=== PATIENT | female | born 1965 | race African-American/Black ===

== ENCOUNTER 2017-03-06 05:50 | Emergency (ER) | payer OTHER ==
[~2017-03-06] VITALS: Ht 167.6 cm; Wt 99.0 kg
[~2017-03-06 05:50] MED LIST: 1-ME1LIQ PO; OMPR20CCR PO
[2017-03-06 05:52] VITALS: BP 188/124; PULSE 96; RESP 16; TEMP 98.7; O2SAT 97
[2017-03-06] MEDS ORDERED: ATOR10TA15 PO (06:04)
[2017-03-06] MEDS ORDERED: AMLO2.5T PO (06:04)
[2017-03-06] MEDS ORDERED: OMEP10CA PO (06:04)
[2017-03-06 06:06] VITALS: BP 140/89; PULSE 88; RESP 16; O2SAT 99
[2017-03-06] MEDS ORDERED: ACETAMINOPHEN/HYDROcodone 325 MG/5 MG TAB PO ONE (06:15)
[2017-03-06] MEDS ORDERED: KETOROLAC TROMETHAMINE 60 MG/2 ML (IM) VIAL IM ONE (06:15)
--- NOTE | 2017-03-06 06:23 | PD ---
HPI Chief Complaint: Pain: Acute or Chronic Time Seen by Provider: 06:03 Travel History International Travel<30 days: No Contact w/Intl Traveler<30days: No Traveled to known affect area: No History of Present Illness HPI So 51-year-old woman who presents to the emergency department complaining of left arm pain. Ongoing for the past week or so. She had intermittent trouble with it for years but states this is worse she's had it before. She describes some stiffness, as well as some occasional numbness of the left hand. No other complaints. States she took her last Lortab last night. She normally takes his her back and neck problems. History Past Medical History Narrative Medical Hypertension Hyperlipidemia Hypothyroidism GERD Menopausal: Yes : 6 Para: 4 Dilation and Curettage (D&C): Yes Social History Alcohol Use: Yes (OCC) Tobacco Use: Yes (/2 ppd) Allergies-Medications (Allergen,Severity, Reaction): Coded Allergies: Aspirin (Verified Allergy, Mild, Nausea/Vomiting, 03/06/17) Morphine (Verified Adverse Reaction, Mild, TINGLING IN EXTREMITIES, 03/06/17 ) Adhesives (Verified Adverse Reaction, Unknown, 03/06/17) pulls skin off Reported Meds & Prescriptions Reported Meds & Active Scripts Active Reported Omeprazole 10 Mg Cap 10 Mg PO DAILY Atorvastatin (Atorvastatin Calcium) 10 Mg Tab 10 Mg PO HS Amlodipine (Amlodipine Besylate) 2.5 Mg Tab 2.5 Mg PO DAILY Review of Systems Except as stated in HPI: all other systems reviewed are Neg Physical Exam Narrative GENERAL: 50 year-old woman, no acute distress. SKIN: Warm and dry. CARDIOVASCULAR: Warm and well perfused. RESPIRATORY: Normal rate and effort. MUSCULOSKELETAL: Normal appearance of the left upper extremity. She guards against any movement of the shoulder resists any attempts at examination. She is generalized tenderness of the shoulder. There is no warmth or erythema that I can appreciate. Elbow is unremarkable. Wrist and hand is unremarkable. Good pulses in the distal extremity with good perfusion. NEUROLOGICAL: Awake and alert. No gross deficits. Data Data Last Documented VS Vital Signs Date Time Temp Pulse Resp B/P Pulse Ox O2 Delivery O2 Flow Rate FiO2 03/06/17 06:09 88 16 03/06/17 06:06 140/89 99 Room Air 03/06/17 05:52 98.7 Orders Ketorolac Inj (Toradol Inj) (03/06/17 06:15) Acetamin-Hydrocod 325-5 Mg ([place] 5-325 (03/06/17 06:15) [facility] Medical Decision Making Medical Screen Exam Complete: Yes Emergency Medical Condition: Yes Differential Diagnosis Radiculopathy, arthritis, strain or sprain, vascular disease, DVT, other Narrative Course Medical decision making A thorough left arm pain. She had intermittent symptoms in the past, but not this severe. She is pretty significant discomfort moving the shoulder. Don't see any warmth or inflammation to suggest an infected joint. Is no edema to suggest DVT. Probable radiculopathy. She was taking opiates for this at home. Recommend supportive treatment now, outpatient follow-up. She had an x-ray done in September of last year that was unremarkable. Diagnosis Primary Impression: Left arm pain Additional Instructions: Continue current medications. Follow-up with your primary doctor Wednesday for further evaluation. Return to the emergency department for any new or worsening symptoms. Med/Other Pt SpecificInfo: No Change to Meds Disposition: 01 DISCHARGE HOME Condition: Stable Dima Rain MD March 06, 2017 06:23
== END 2017-03-06 06:59 | disposition home or self-care (01) ==
LOC: NEPC 05:50
DX: M79.602 Pain in left arm (principal); R20.0 Anesthesia of skin; I10 Essential (primary) hypertension; F17.210 Nicotine dependence, cigarettes, uncomplicated
CPT/HCPCS: 96372; 99283; J1885

== ENCOUNTER 2017-05-10 23:12 | Observation (INO) | payer OTHER ==
[~2017-05-10] VITALS: Ht 170.2 cm; Wt 95.0 kg
[~2017-05-10 23:12] MED LIST changes: -1-ME1LIQ PO; +AMLO2.5T PO; +ATOR10TA15 PO; +OMEP10CA PO; -OMPR20CCR PO
[2017-05-10 23:18] VITALS: BP 173/98; PULSE 78; RESP 16; TEMP 98.6; O2SAT 100
--- NOTE | 2017-05-10 23:51 | PD ---
HPI Chief Complaint: chest pain, abdominal pain Time Seen by Provider: 23:51 Travel History International Travel<30 days: No Contact w/Intl Traveler<30days: No Traveled to known affect area: No History of Present Illness HPI 51-year-old female came to the emergency room with history of epigastric pain going up to her chest. Patient is very hard of hearing and difficult to get much history. But she did point to her epigastric area and said that the pain is radiating up to her chest. I was unable to get the quality of the pain. She did appear to be uncomfortable. Patient has been in the emergency room multiple times with abdominal pain and chest pain related complains. Vital signs were relatively stable. She says she has been nauseous and vomited. [facility], [facility] Past Medical History Narrative Medical List of her past medical, surgical, social and family history was reviewed from the nursing note. Arthritis: No Heart Rhythm Problems: No Cancer: No Cardiac Catheterization: No Cardiovascular Problems: Yes High Cholesterol: Yes Chest Pain: No Congestive Heart Failure: No Cerebrovascular Accident: No Diabetes: No Diminished Hearing: Yes (YES PT IS DEAF, ABLE TO READ LIPS) Endocrine: No GERD: Yes Genitourinary: No Headaches: Yes Hypertension: Yes Immune Disorder: No Musculoskeletal: Yes (CHRONIC BACK NECK AND SHOULDER PAIN) Neurologic: Yes Psychiatric: No Reproductive: No Respiratory: No Immunizations Current: Yes Migraines: Yes Seizures: Yes Thyroid Disease: No Menopausal: Yes : 6 Para: 4 Miscarriage: 1 : 1 Dilation and Curettage (D&C): Yes Tubal Ligation: Yes Past Surgical History Abdominal Surgery: Yes (APPENDECTOMY) Appendectomy: Yes Cardiac Surgery: No Coronary Artery Bypass Graft: No Ear Surgery: No Endocrine Surgery: No Eye Surgery: No Genitourinary Surgery: No Gynecologic Surgery: Yes (D&C) Hysterectomy: Yes (06/15/2011) Oral Surgery: No Thoracic Surgery: No Other Surgery: Yes Social History Alcohol Use: Yes (OCC) Tobacco Use: Yes (11/02 ppd) Substance Use: Yes (MARIJUANA DAILY) Allergies-Medications (Allergen,Severity, Reaction): Coded Allergies: Aspirin (Verified Allergy, Mild, Nausea/Vomiting, 05/10/17) Morphine (Verified Adverse Reaction, Mild, TINGLING IN EXTREMITIES, ) Adhesives (Verified Adverse Reaction, Unknown, 05/10/17) pulls skin off Comments List of her allergies reviewed from the nurse's note. Reported Meds & Prescriptions Reported Meds & Active Scripts Active Reported Omeprazole 10 Mg Cap 10 Mg PO DAILY Atorvastatin (Atorvastatin Calcium) 10 Mg Tab 10 Mg PO HS Amlodipine (Amlodipine Besylate) 2.5 Mg Tab 2.5 Mg PO DAILY Narrative Medication List of her home medications reviewed from the nursing note. Review of Systems Except as stated in HPI: all other systems reviewed are Neg Physical Exam Narrative GENERAL: Awake, alert, moderate distress SKIN: Focused skin assessment warm/dry. HEAD: Atraumatic. Normocephalic. EYES: Pupils equal and round. No scleral icterus. No injection or drainage. ENT: No nasal bleeding or discharge. Mucous membranes pink and moist. NECK: Trachea midline. No JVD. CARDIOVASCULAR: Regular rate and rhythm. No murmur appreciated. RESPIRATORY: No accessory muscle use. Clear to auscultation. Breath sounds equal bilaterally. GASTROINTESTINAL: Abdomen soft, non-tender, nondistended. Hepatic and splenic margins not palpable. MUSCULOSKELETAL: No obvious deformities. No clubbing. No cyanosis. No edema. NEUROLOGICAL: Awake and alert. No obvious cranial nerve deficits. Motor grossly within normal limits. Normal speech. PSYCHIATRIC: Appropriate mood and affect; insight and judgment normal. Data Data Last Documented VS Vital Signs Date Time Temp Pulse Resp B/P Pulse Ox O2 Delivery O2 Flow Rate FiO2 05/11/17 05:23 67 22 156/72 100 Room Air 05/11/17 00:09 98.2 Orders Electrocardiogram (05/11/17 00:10) Ckmb (Isoenzyme) Profile (05/11/17 00:10) Complete Blood Count With Diff (05/11/17 00:10) Comprehensive Metabolic Panel (05/11/17 00:10) Magnesium (Mg) (05/11/17 00:10) Prothrombin Time / Inr (Pt) (05/11/17 00:10) Troponin I (05/11/17 00:10) Lipase (05/11/17 00:10) Chest, Single Ap (05/11/17 00:10) Ecg Monitoring (05/11/17 00:10) Bilateral Bp Monitoring (05/11/17 00:10) Iv Access Insert/Monitor (05/11/17 00:10) Oximetry (05/11/17 00:10) Oxygen Administration (05/11/17 00:10) Sodium Chloride 0.9% Flush (Ns Flush) (05/11/17 00:15) Ondansetron Inj (Zofran Inj) (05/11/17 00:15) Ketorolac Inj (Toradol Inj) (05/11/17 00:15) Sodium Chlor 0.9% 1000 Ml Inj (Ns 1000 M (05/11/17 00:15) Ed Poc Ultrasound (05/11/17 ) Cta Thor Abd Aorta W Iv C W3d (05/11/17 ) CKMB (05/11/17 03:36) CKMB% (05/11/17 03:36) Acetamin-Hydrocod 325-5 Mg ([place] 5-325 (05/11/17 04:45) Iohexol 350 Inj (Omnipaque 350 Inj) (05/11/17 04:58) Admit Order (Ed Use Only) (05/11/17 06:08) Place In Observation (05/11/17 06:08) Activity Bed Rest With Brp (05/11/17 06:08) Vital Signs (Adult) Q4H (05/11/17 06:08) Cardiac Rhythm .As Directed (05/11/17 06:08) Notify Dr: Other .PRN (05/11/17 06:08) Notify Parameters (05/11/17 06:08) Resp Oxygen Nasal Cannula (05/11/17 ) Ckmb (Isoenzyme) Profile (05/11/17 06:08) Ckmb (Isoenzyme) Profile (05/11/17 09:08) Troponin I (05/11/17 06:08) Troponin I (05/11/17 09:08) Electrocardiogram (05/11/17 06:08) Electrocardiogram (05/11/17 09:08) ^ Obtain (05/11/17 06:08) Sodium Chloride 0.9% Flush (Ns Flush) (05/11/17 06:15) Sodium Chloride 0.9% Flush (Ns Flush) (05/11/17 09:00) Acetaminophen (Tylenol) (05/11/17 06:15) Ondansetron Inj (Zofran Inj) (05/11/17 06:15) Nitroglycerin Sl (Nitrostat Sl) (05/11/17 06:15) [employer] / Telemetry TOSIN.Q8H (05/11/17 06:08) CKMB (05/11/17 09:08) CKMB% (05/11/17 09:08) CKMB (05/11/17 12:40) CKMB% (05/11/17 12:40) Labs Laboratory Tests Test 05/11/17 05/11/17 00:40 03:36 White Blood Count 8.3 TH/MM3 Red Blood Count 4.86 MIL/MM3 Hemoglobin 13.8 GM/DL Hematocrit 41.6 % Mean Corpuscular Volume 85.7 FL Mean Corpuscular Hemoglobin 28.4 PG Mean Corpuscular Hemoglobin 33.2 % Concent Red Cell Distribution Width 13.5 % Platelet Count 242 TH/MM3 Mean Platelet Volume 9.9 FL Neutrophils (%) (Auto) 77.9 % Lymphocytes (%) (Auto) 18.6 % Monocytes (%) (Auto) 2.6 % Eosinophils (%) (Auto) 0.3 % Basophils (%) (Auto) 0.6 % Neutrophils # (Auto) 6.5 TH/MM3 Lymphocytes # (Auto) 1.6 TH/MM3 Monocytes # (Auto) 0.2 TH/MM3 Eosinophils # (Auto) 0.0 TH/MM3 Basophils # (Auto) 0.1 TH/MM3 CBC Comment DIFF FINAL Differential Comment Prothrombin Time 11.5 SEC Prothromb Time International 1.0 RATIO Ratio Sodium Level 138 MEQ/L Potassium Level 3.5 MEQ/L Chloride Level 104 MEQ/L Carbon Dioxide Level 24.3 MEQ/L Anion Gap 10 MEQ/L Blood Urea Nitrogen 4 MG/DL Creatinine 0.86 MG/DL Estimat Glomerular Filtration 84 ML/MIN Rate Random Glucose 134 MG/DL Calcium Level 9.1 MG/DL Magnesium Level 1.9 MG/DL Total Bilirubin 0.7 MG/DL Aspartate Amino Transf 17 U/L (AST/SGOT) Alanine Aminotransferase 23 U/L (ALT/SGPT) Alkaline Phosphatase 90 U/L Total Creatine Kinase 132 U/L Creatine Kinase MB LESS THAN 0.5 NG/ML Troponin I LESS THAN 0.02 NG/ML Total Protein 8.9 GM/DL Albumin 4.4 GM/DL Lipase 99 U/L [facility] Medical Decision Making Medical Screen Exam Complete: Yes Emergency Medical Condition: Yes Medical Record Reviewed: Yes Interpretation(s) Twelve-lead EKG was reviewed by me. Normal sinus rhythm, left axis deviation, nonspecific ST-T wave changes. Heart rate of 76 bpm. Differential Diagnosis ACS, aortic dissection, acute cholecystitis, acute pancreatitis Narrative Course 1:32 AM CBC is back and within normal limits. Awaiting for the chemistry and troponin. I have ordered a CT aortogram for this patient to rule out dissection. Patient was medicated for pain. 4:39 AM all her blood test results of final back and they are all within normal limit. HEENT for the CT aortogram. If that's negative patient will be discharged home. 6:[address] scan does not show any aortic dissection. It does show some atherosclerotic disease of the aorta and the coronary arteries. I'll admit her to the chest pain center to rule out ACS. Procedures Procedure Narrative Emergency department right upper quadrant ultrasound was performed with patient consent. Curvilinear probe was used in the transverse and sagittal views within the right upper quadrant revealing gallbladder without obvious wall thickening, cholecystic fluid, or cholelithiasis. EKG Prior to Arrival: No Diagnosis Primary Impression: Chest pain Qualified Code: R07.9 - Chest pain, unspecified type Admitting Information Admitting Physician Requests: Observation Scripts Ondansetron Odt 4 Mg Tab4 Mg SL Q8HR PRN (Nausea/Vomiting) #21 TAB Ref 0 Prov:Kaylin Noland PA-C 05/13/17 Sucralfate Liq 1 Gm/10 Ml Sus1 Gm PO ACHS 10 Days Prov:Kaylin Noland PA-C 05/13/17 Pantoprazole 40 Mg Tab40 Mg PO Q12HR #60 TAB Prov:Kaylin Noland PA-C 05/13/17 Waqar Castillo MD May 10, 2017 23:51
[2017-05-11] VITALS (13 sets, daily range): BP systolic 110–181; BP diastolic 56–87; PULSE 64–81; RESP 12–22; TEMP 95.2–99.9; O2SAT 92–100
[2017-05-11] MEDS ORDERED: SODIUM CHLOR 0.9% 1000 ML INJ 1,000 ML IV ONE (00:15)
[2017-05-11] MEDS ORDERED: ONDANSETRON HCL 4 MG/2 ML VIAL IV PUSH ONE (00:15)
[2017-05-11] MEDS ORDERED: KETOROLAC TROMETHAMINE 30 MG/ML (IVP) VIAL IV PUSH ONE (00:15)
[2017-05-11] MEDS ORDERED: SODIUM CHLORIDE 0.9% FLUSH 10 ML FLUSH IVF PRN (00:15)
[2017-05-11 01:01] LABS: AUTOMATED NEUTROPHIL # 6.5 TH/MM3 (1.8-7.7); BASOPHIL # 0.1 TH/MM3 (0-0.2); BASOPHIL % 0.6 % (0.0-2.0); EOSINOPHIL % 0.3 % (0.0-4.0); HEMATOCRIT 41.6 % (35.0-46.0); HEMO FLAGS DIFF FINAL; LYMPH % 18.6 % (9.0-44.0); LYMPHOCYTE # 1.6 TH/MM3 (1.0-4.8); MEAN CELL VOLUME 85.7 FL (80.0-100.0); MEAN CORPUSCULAR HEMOGLOBIN 28.4 PG (27.0-34.0); MEAN CORPUSCULAR HGB CONC 33.2 % (32.0-36.0); MONO % 2.6 % (0.0-8.0); NEUT % 77.9 % (16.0-70.0); PLATELET COUNT 242 TH/MM3 (150-450); RED BLOOD COUNT 4.86 MIL/MM3 (4.00-5.30); RED CELL DISTRIBUTION WIDTH 13.5 % (11.6-17.2); WHITE BLOOD COUNT 8.3 TH/MM3 (4.0-11.0)
--- NOTE | 2017-05-11 01:05 | RADRPT ---
EXAM DATE/TIME: 05/11/2017 00:39 [facility] COMPARISON: CHEST SINGLE AP, March 27, 2016, 0:29. INDICATIONS : Chest pain. MEDICAL HISTORY : Hypertension. SURGICAL HISTORY : None. ENCOUNTER: Initial ACUITY: 1 day PAIN SCORE: 2/10 LOCATION: Bilateral chest FINDINGS: A single view of the chest demonstrates the lungs to be symmetrically aerated without evidence of mas s, infiltrate or effusion. The cardiomediastinal contours are unremarkable. Osseous structures are intact. CONCLUSION: No evidence of acute cardiopulmonary disease. Rober Wade MD on May 11, 2017 at 1:04 Board Certified Radiologist. This report was verified electronically.
[2017-05-11 01:19] LABS: PROTHROMBIN TIME - PATIENT 11.5 SEC (9.8-11.6)
[2017-05-11 04:13] LABS: ALT (GPT) 23 U/L (10-53); ANION GAP 10 MEQ/L (5-15); AST (GOT) 17 U/L (15-37); BICARBONATE 24.3 MEQ/L (21.0-32.0); BLOOD UREA NITROGEN 4 MG/DL (7-18); CHLORIDE 104 MEQ/L (98-107); GLOMERULAR FILTRATION RATE 84 ML/MIN (>89); MAGNESIUM 1.9 MG/DL (1.5-2.5); POTASSIUM 3.5 MEQ/L (3.5-5.1); SODIUM (NA) 138 MEQ/L (136-145)
[2017-05-11 04:16] LABS: ALKALINE PHOSPHATASE 90 U/L (45-117); CREATINE KINASE 132 U/L (26-192); TOTAL BILIRUBIN ADULT 0.7 MG/DL (0.2-1.0)
[2017-05-11 04:28] LABS: CKMB LESS THAN 0.5 NG/ML (0.5-3.6)
[2017-05-11] MEDS ORDERED: ACETAMINOPHEN/HYDROcodone 325 MG/5 MG TAB PO ONE (04:45)
[2017-05-11] MEDS ORDERED: IOHEXOL 350 MG/ML 50 ML BTL (for RAD DIAG) IV ONE (04:58)
--- NOTE | 2017-05-11 06:01 | RADRPT ---
EXAM DATE/TIME: 05/11/2017 04:48 [facility] COMPARISON: No previous studies available for comparison. INDICATIONS : Abdomen pain. Evaluate for dissection. IV CONTRAST: 100 cc Omnipaque 350 (iohexol) IV RADIATION DOSE: 16.91 CTDIvol (mGy) MEDICAL HISTORY : Cardiovascular disease. Hypertension. Gastroesophageal reflux disease. SURGICAL HISTORY : None. ENCOUNTER: Initial ACUITY: 1 day PAIN SCALE: 7/10 LOCATION: chest abdomen TECHNIQUE: Volumetric scanning was performed using a multi-row detector CT scanner. The data was post processed with a variety of visualization algorithms including full volume maximum intensity projection, multi -planar sliding thin slab reformation, curved planar reformation, and surface rendering techniques. Using automated exposure control and adjustment of the mA and/or kV according to patient size, radiat ion dose was kept as low as reasonably achievable to obtain optimal diagnostic quality images. DICOM format image data is available electronically for review and comparison. FINDINGS: Thoracic aorta has normal caliber. There is no dissection. There is patchy atherosclerotic plaque, mo stly the mid and lower portions of the abdominal aorta and including the abdominal branch vessels. In cidentally seen dual renal artery origin on the right. There is mild short segment narrowing of the p roximal left renal artery. Normal heart size. There is coronary artery calcification, most conspicuous at the left anterior desc ending. No infiltrate, effusion or pneumothorax. There is a small moderate hiatal hernia. The liver is fatty infiltrated. CONCLUSION: 1. No aneurysm or dissection of the aorta. There is mild atherosclerotic plaque of the abdominal aort a. Please see above. 2. Clear lungs. 3. Left anterior descending coronary artery calcification. 4. Fatty liver. 5. Small to moderate hiatal hernia. Rober Wade MD on May 11, 2017 at 5:56 Board Certified Radiologist. This report was verified electronically.
[2017-05-11] MEDS ORDERED: ACETAMINOPHEN 500 MG CPLT PO PRN (06:15)
[2017-05-11] MEDS ORDERED: SODIUM CHLORIDE 0.9% FLUSH 10 ML FLUSH IV FLUSH PRN (06:15)
[2017-05-11] MEDS ORDERED: NITROGLYCERIN 0.4 MG SL 25 TABS/BTL SL PRN (06:15)
[2017-05-11] MEDS: SODIUM CHLORIDE 0.9% FLUSH 10 ML FLUSH IV FLUSH SCH ×2 (09:00→22:48)
[2017-05-11 09:51] LABS: CREATINE KINASE 153 U/L (26-192)
[2017-05-11 10:03] LABS: CKMB 0.6 NG/ML (0.5-3.6)
[2017-05-11] MEDS: ONDANSETRON HCL 4 MG/2 ML VIAL IV PRN (10:45)
[2017-05-11] MEDS ORDERED: SODIUM CHLOR 0.9% 1000 ML INJ 1,000 ML IV SCH (11:30)
[2017-05-11] MEDS ORDERED: HYDROmorphone HCL 2 MG TAB PO PRN (11:30)
[2017-05-11] MEDS ORDERED: PANTOPRAZOLE SODIUM 40 MG VIAL IVP ONE (11:30)
--- NOTE | 2017-05-11 11:40 | PD.CARD.PN ---
Subjective Subjective Remarks CARDIOLOGY ATTENDING NOTE HPI: 51 yo female presenting with abdominal pain, NV. She is very cooperative but has congenital deafness and difficult history to obtain. When we entered the room she had severe abdominal pain, NV of reddish content very suggestive of blood. She has a long hx of GERD and acid reflux and has never been fully evaluated. Her present problem began with abdominal pain and after a day of vomiting she began to have pain extending up into her sternal mid chest area. She does have a hx of lipids, HTN but no cardiac hx. O: GEN WNWD in pain with NV of reddish fluid HEENT DEBORAH, EOMI CHEST CLEAR TO AP CV RSR no GRM ABD Very tender RUQ but no rebound EXT no CCE EKG neg for ischemia LAB neg for ACS CXR neg CT HH, Ca+ in distribution of LAD A: Acute abdominal pain and tenderness with NV and reddish fluid suggestive of hematemesis CP is currently secondary to GI and prolonged vomiting P: Admit for stabilization and evaluation of abdomen. Needs GI eval and appropriate OP FU Once GI stable needs OP eval for heart Objective Vital Signs / I&O Vital Signs Date Time Temp Pulse Resp B/P Pulse Ox O2 Delivery O2 Flow Rate FiO2 05/11/17 08:18 64 18 142/71 99 05/11/17 07:00 72 16 148/70 99 Room Air 05/11/17 06:26 100 21 05/11/17 05:23 67 22 156/72 100 Room Air 05/11/17 05:15 96 Room Air 05/11/17 00:22 81 20 115/56 99 Room Air 110/68 05/11/17 00:21 99 Room Air 05/11/17 00:21 Room Air 05/11/17 00:09 98.2 75 136/63 97 05/10/17 23:18 98.6 78 16 173/98 100 Room Air Laboratory Laboratory Tests Test 05/11/17 05/11/17 05/11/17 00:40 03:36 09:08 White Blood Count 8.3 TH/MM3 Red Blood Count 4.86 MIL/MM3 Hemoglobin 13.8 GM/DL Hematocrit 41.6 % Mean Corpuscular Volume 85.7 FL Mean Corpuscular Hemoglobin 28.4 PG Mean Corpuscular Hemoglobin 33.2 % Concent Red Cell Distribution Width 13.5 % Platelet Count 242 TH/MM3 Mean Platelet Volume 9.9 FL Neutrophils (%) (Auto) 77.9 % Lymphocytes (%) (Auto) 18.6 % Monocytes (%) (Auto) 2.6 % Eosinophils (%) (Auto) 0.3 % Basophils (%) (Auto) 0.6 % Neutrophils # (Auto) 6.5 TH/MM3 Lymphocytes # (Auto) 1.6 TH/MM3 Monocytes # (Auto) 0.2 TH/MM3 Eosinophils # (Auto) 0.0 TH/MM3 Basophils # (Auto) 0.1 TH/MM3 CBC Comment DIFF FINAL Differential Comment Prothrombin Time 11.5 SEC Prothromb Time International 1.0 RATIO Ratio Sodium Level 138 MEQ/L Potassium Level 3.5 MEQ/L Chloride Level 104 MEQ/L Carbon Dioxide Level 24.3 MEQ/L Anion Gap 10 MEQ/L Blood Urea Nitrogen 4 MG/DL Creatinine 0.86 MG/DL Estimat Glomerular Filtration 84 ML/MIN Rate Random Glucose 134 MG/DL Calcium Level 9.1 MG/DL Magnesium Level 1.9 MG/DL Total Bilirubin 0.7 MG/DL Aspartate Amino Transf 17 U/L (AST/SGOT) Alanine Aminotransferase 23 U/L (ALT/SGPT) Alkaline Phosphatase 90 U/L Total Creatine Kinase 132 U/L 153 U/L Creatine Kinase MB LESS THAN 0.5 0.6 NG/ML NG/ML Troponin I LESS THAN 0.02 LESS THAN 0.02 NG/ML NG/ML Total Protein 8.9 GM/DL Albumin 4.4 GM/DL Lipase 99 U/L Pete Turner MD May 11, 2017 11:39
[2017-05-11] MEDS ORDERED: PILL SPLITTER OTHER PRN (12:15)
--- NOTE | 2017-05-11 12:23 | HHI.HP ---
HPI Primary Care Physician Unknown Chief Complaint Chest pain History of Present Illness This is a 51-year-old female that presents to the ED with a complaint of epigastric discomfort as well as chest discomfort. She states the discomfort radiates from the epigastric region into the chest. She has been nauseous but has had no emesis. States she has had issues of GERD in the past but cannot recall ever having a GI workup. Upon review records she had a nonischemic Lexiscan March 2016. Denies recent travel. Denies fevers or chills. While entering the examination room patient apparently just had an episode of emesis. There is coffee-ground emesis at that time. Review of Systems General: Patient denies fevers, chills recent, and recent travel HEENT: Patient denies headache, sore throat, difficulty swallowing. Cardiovascular: Has the chest discomfort as mentioned above. Denies sensation of heart beating rapidly or irregularly. No syncope. Denies diaphoresis. Respiratory: Denies shortness of breath or inspirational chest discomfort. Denies coughing wheezing or hemoptysis. GI: Patient had been nauseous. She began having emesis just prior to is evaluating the patient in the chest pain center. Patient denies bloody stools. Musculoskeletal: Patient denies joint pain or edema. Denies calf pain or edema. Neurovascular: Patient denies numbness, tingling, weakness in extremities. Denies headache. Endocrine: Denies polyuria and polydipsia. Hematologic: Denies easy bruising. Skin: Denies rash or itching. Past Family Social History Allergies: Coded Allergies: Aspirin (Verified Allergy, Mild, Nausea/Vomiting, 05/10/17) Morphine (Verified Adverse Reaction, Mild, TINGLING IN EXTREMITIES, ) Adhesives (Verified Adverse Reaction, Unknown, 05/10/17) pulls skin off Past Medical History Hypertension, hyperlipidemia, and GERD. Denies diabetes and known CAD. Patient has congenital deafness. Past Surgical History DNC. Tubal ligation. Appendectomy. Reported Medications Reported Meds & Active Scripts Active Reported Omeprazole 10 Mg Cap 10 Mg PO DAILY Atorvastatin (Atorvastatin Calcium) 10 Mg Tab 10 Mg PO HS Amlodipine (Amlodipine Besylate) 2.5 Mg Tab 2.5 Mg PO DAILY Active Ordered Medications Current Medications Medications (Trade) Dose Ordered Sig/Margaret Route Start Time Stop Time Status Last Admin (NS Flush) 2 ml UNSCH PRN IVF 05/11/17 00:15 (NS Flush) 2 ml UNSCH PRN IV FLUSH 05/11/17 06:15 (NS Flush) 2 ml BID IV FLUSH 05/11/17 09:00 (Tylenol) 500 mg Q4H PRN PO 05/11/17 06:15 (Zofran Inj) 4 mg Q6H PRN IV 05/11/17 06:15 05/11/17 10:45 (Nitrostat Sl) 0.4 mg Q5M PRN SL 05/11/17 06:15 Hydromorphone HCl 1 mg 1 mg Q4H PRN PO 05/11/17 11:30 (NS 1000 ml Inj) 1,000 ml @ 125 mls/hr Q8H IV 05/11/17 11:30 05/11/17 19:29 (Norvasc) 2.5 mg DAILY PO 05/11/17 11:45 (Lipitor) 10 mg HS PO 05/11/17 21:00 (Pill Splitter) 1 ea UNSCH PRN OTHER 05/11/17 12:15 Family History She is not aware of her family medical history related to coronary disease. Social History Patient smokes about one half pack of cigarettes daily. She smokes marijuana daily. Denies alcohol use. Physical Exam Vital Signs Vital Signs Date Time Temp Pulse Resp B/P Pulse Ox O2 Delivery O2 Flow Rate FiO2 05/11/17 11:33 98.6 72 18 181/87 98 05/11/17 08:18 64 18 142/71 99 05/11/17 07:00 72 16 148/70 99 Room Air 05/11/17 06:26 100 21 05/11/17 05:23 67 22 156/72 100 Room Air 05/11/17 05:15 96 Room Air 05/11/17 00:22 81 20 115/56 99 Room Air 110/68 05/11/17 00:21 99 Room Air 05/11/17 00:21 Room Air 05/11/17 00:09 98.2 75 136/63 97 05/10/17 23:18 98.6 78 16 173/98 100 Room Air Physical Exam GENERAL: This is a well-nourished, well-developed patient, in no apparent distress. Patient speaks in clear complete sentences. Patient is pleasant. HEENT: Head is atraumatic and normocephalic. Neck is supple without lymphadenopathy and trachea is midline. No JVD or carotid bruits. CARDIOVASCULAR: Regular rate and rhythm without murmurs, gallops, or rubs. RESPIRATORY: Clear to auscultation. Breath sounds equal bilaterally. No wheezes , rales, or rhonchi. Chest wall is nontender. No use of accessory muscles. GASTROINTESTINAL: Abdomen is soft. However there is quite a bit of tenderness in the epigastric region. No guarding. No obvious pulsatile mass or bruit. No CVA tenderness. Strong femoral pulses bilaterally. There are hyperactive bowel sounds in all quadrants. Tested the emesis with a Hemoccult card and it was positive. MUSCULOSKELETAL: Patient is moving upper and lower extremities freely. No calf tenderness or edema, no Homans sign. Strong pulses in upper and lower extremities. NEUROLOGICAL: Patient is alert and oriented. Cranial nerves 2-12 are grossly intact. No focal deficits and speech is clear. SKIN: No rash and turgor is normal. Laboratory Laboratory Tests Test 05/11/17 05/11/17 05/11/17 00:40 03:36 09:08 White Blood Count 8.3 Red Blood Count 4.86 Hemoglobin 13.8 Hematocrit 41.6 Mean Corpuscular Volume 85.7 Mean Corpuscular Hemoglobin 28.4 Mean Corpuscular Hemoglobin 33.2 Concent Red Cell Distribution Width 13.5 Platelet Count 242 Mean Platelet Volume 9.9 Neutrophils (%) (Auto) 77.9 Lymphocytes (%) (Auto) 18.6 Monocytes (%) (Auto) 2.6 Eosinophils (%) (Auto) 0.3 Basophils (%) (Auto) 0.6 Neutrophils # (Auto) 6.5 Lymphocytes # (Auto) 1.6 Monocytes # (Auto) 0.2 Eosinophils # (Auto) 0.0 Basophils # (Auto) 0.1 CBC Comment DIFF FINAL Differential Comment Prothrombin Time 11.5 Prothromb Time International 1.0 Ratio Sodium Level 138 Potassium Level 3.5 Chloride Level 104 Carbon Dioxide Level 24.3 Anion Gap 10 Blood Urea Nitrogen 4 Creatinine 0.86 Estimat Glomerular Filtration 84 Rate Random Glucose 134 Calcium Level 9.1 Magnesium Level 1.9 Total Bilirubin 0.7 Aspartate Amino Transf 17 (AST/SGOT) Alanine Aminotransferase 23 (ALT/SGPT) Alkaline Phosphatase 90 Total Creatine Kinase 132 153 Creatine Kinase MB LESS THAN 0.5 0.6 Troponin I LESS THAN 0.02 LESS THAN 0.02 Total Protein 8.9 Albumin 4.4 Lipase 99 Result Diagram: 05/11/17 0040 05/11/17 0336 Imaging Last 48 hours Impressions Chest X-Ray 05/11/17 0010 Signed Impressions: Service Date/Time: Thursday, May 11, 2017 00:39 - CONCLUSION: No evidence of acute cardiopulmonary disease. Rober Wade MD Aorta CTA 05/11/17 0000 Signed Impressions: Service Date/Time: Thursday, May 11, 2017 04:48 - CONCLUSION: 1. No aneurysm or dissection of the aorta. There is mild atherosclerotic plaque of the abdominal aorta. Please see above. 2. Clear lungs. 3. Left anterior descending coronary artery calcification. 4. Fatty liver. 5. Small to moderate hiatal hernia. Rober Wade MD Course Initial EKG is sinus rhythm without significant ST segment depressions or elevations. Assessment and Plan Assessment and Plan * GI bleed: Patient has had serial cardiac enzymes and EKGs for ruling out purposes. She was seen by Dr. Turner of cardiology in the chest pain center and this is not appear to be cardiac. She'll be admitted to the hospitalist service. We will consult GI. Patient is agreeable to this plan. She should follow-up with a construction mgr for further outpatient workup. * Hypertension: Continue current medication. * Hyperlipidemia: Continue current medication. Patient stable this time. She is agreeable to this plan. Ovidio Peters May 11, 2017 12:23
[2017-05-11] MEDS: HYDROmorphone HCL PF 1 MG/ML VIAL IV PUSH PRN ×2 (12:41→20:46)
[2017-05-11] MEDS: amLODIPine BESYLATE 5 MG TAB PO SCH (12:50)
[2017-05-11 13:23] LABS: AUTOMATED NEUTROPHIL # 8.2 TH/MM3 (1.8-7.7); BASOPHIL # 0.1 TH/MM3 (0-0.2); BASOPHIL % 0.7 % (0.0-2.0); HEMO FLAGS DIFF FINAL; LYMPH % 16.6 % (9.0-44.0); LYMPHOCYTE # 1.7 TH/MM3 (1.0-4.8); MEAN CELL VOLUME 86.3 FL (80.0-100.0); MEAN CORPUSCULAR HEMOGLOBIN 27.9 PG (27.0-34.0); MEAN CORPUSCULAR HGB CONC 32.3 % (32.0-36.0); MONO % 3.6 % (0.0-8.0); NEUT % 79.1 % (16.0-70.0); PLATELET COUNT 230 TH/MM3 (150-450); RED BLOOD COUNT 5.33 MIL/MM3 (4.00-5.30); WHITE BLOOD COUNT 10.3 TH/MM3 (4.0-11.0)
[2017-05-11 13:43] LABS: CREATINE KINASE 143 U/L (26-192)
[2017-05-11 13:56] LABS: CKMB LESS THAN 0.5 NG/ML (0.5-3.6)
--- NOTE | 2017-05-11 14:03 | HHI.PR ---
Subjective Remarks Follow-up for hematemesis and abdominal pain. The patient states that since yesterday afternoon she has been having intractable vomiting. She states the vomitus was yellow until this morning when she had coffee-ground emesis. She had a second episode this afternoon as well. She states that since vomiting yesterday afternoon she's been having epigastric abdominal discomfort that radiates up into her chest. She denies any specific chest pain. She reports Zofran helps the nausea. The patient was transferred from the chest pain center to the hospitalist service due to hematemesis. Patient seen with transaction manager at bedside, plan for EGD today or tomorrow. Objective Vitals Vital Signs Date Time Temp Pulse Resp B/P Pulse Ox O2 Delivery O2 Flow Rate FiO2 05/11/17 11:33 98.6 72 18 181/87 98 05/11/17 08:18 64 18 142/71 99 05/11/17 07:00 72 16 148/70 99 Room Air 05/11/17 06:26 100 21 05/11/17 05:23 67 22 156/72 100 Room Air 05/11/17 05:15 96 Room Air 05/11/17 00:22 81 20 115/56 99 Room Air 110/68 05/11/17 00:21 99 Room Air 05/11/17 00:21 Room Air 05/11/17 00:09 98.2 75 136/63 97 05/10/17 23:18 98.6 78 16 173/98 100 Room Air Result Diagram: 05/11/17 1240 05/11/17 0336 Imaging Last Impressions Chest X-Ray 05/11/17 0010 Signed Impressions: Service Date/Time: Thursday, May 11, 2017 00:39 - CONCLUSION: No evidence of acute cardiopulmonary disease. Rober Wade MD Aorta CTA 05/11/17 0000 Signed Impressions: Service Date/Time: Thursday, May 11, 2017 04:48 - CONCLUSION: 1. No aneurysm or dissection of the aorta. There is mild atherosclerotic plaque of the abdominal aorta. Please see above. 2. Clear lungs. 3. Left anterior descending coronary artery calcification. 4. Fatty liver. 5. Small to moderate hiatal hernia. Rober Wade MD Objective Remarks GENERAL: Well-developed well-nourished. In no acute distress. Congenitally deaf, but reads lips well. SKIN: Warm and dry. No lesions noted. HEENT: Normocephalic. Pupils equal and round. Mucous membranes pink and moist. CARDIOVASCULAR: Regular rate and rhythm. No murmur appreciated. RESPIRATORY: No accessory muscle use. Clear to auscultation. Breath sounds equal bilaterally. GASTROINTESTINAL: Abdomen soft, nondistended. Diffuse TTP, worse in the epigastrium. Bowel sounds x4. MUSCULOSKELETAL: No obvious deformities. No clubbing or cyanosis. No edema. NEUROLOGICAL: Awake and alert. No focal neurological deficits. Moves upper and lower extremities spontaneously. Normal speech. PSYCHIATRIC: Appropriate mood and affect; insight and judgment normal. A/P Assessment and Plan 51-year-old female with a past medical history of HTN, HLD, GERD, tobacco abuse who presented with epigastric discomfort and transferred to hospitalist service for hematemesis GI bleed: Hemoglobin is stable, 13.8 at admission and 14.9 today. IV Protonix twice a day. GI consulted, planning for EGD. Diet per GI. IVF. Monitor H&H. Zofran as needed. Atypical chest pain: Suspect secondary to gastritis. Troponins negative 3. Discussed with [facility] protozoology teacher, Dr. Turner, symptoms of this time do not seem consistent with an acute cardiac process, recommended outpatient cardiology follow-up. Continue statin. Hypertension: Currently not well controlled, possibly secondary to pain. Continue home amlodipine. Clonidine as needed. DVT prophylaxis: SCDs Discharge Planning Follow GI recommendations after EGD. Jey Delgado May 11, 2017 14:03
--- NOTE | 2017-05-11 14:07 | PD.CONS ---
HPI History of Present Illness This is a 51 year old woman who developed moderate epigastric burning pain radiating up into her chest yesterday after eating a banana. She started vomiting later in the day and has not had anything else to eat since. She did have a few beers yesterday before she began to vomit. She reports having GERD and takes medication for that. she has never had an EGD or colonoscopy. she reports her pain is much better now. She Has vomited some bloody emesis today. No melena. ROS: no headache earache, shortness of breath, rash, constipation or brbpr. Otherwise complete ros is negative. []. PFSH Past Medical History Hypertension Denies heart disease in the past. Her brother had a [place] but he is 4 years older. Denies diabetes. Denies ulcers in past. Past Surgical History Ap-py, Hysterectomy Surgery for fx leg. Coded Allergies: Aspirin (Verified Allergy, Mild, Nausea/Vomiting, 05/10/17) Morphine (Verified Adverse Reaction, Mild, TINGLING IN EXTREMITIES, ) Adhesives (Verified Adverse Reaction, Unknown, 05/10/17) pulls skin off Medications Current Medications Medications (Trade) Dose Ordered Sig/Margaret Route Start Time Stop Time Status Last Admin (NS Flush) 2 ml UNSCH PRN IVF 05/11/17 00:15 (NS Flush) 2 ml UNSCH PRN IV FLUSH 05/11/17 06:15 (NS Flush) 2 ml BID IV FLUSH 05/11/17 09:00 (Tylenol) 500 mg Q4H PRN PO 05/11/17 06:15 (Zofran Inj) 4 mg Q6H PRN IV 05/11/17 06:15 05/11/17 10:45 (Nitrostat Sl) 0.4 mg Q5M PRN SL 05/11/17 06:15 (Norvasc) 2.5 mg DAILY PO 05/11/17 11:45 05/11/17 12:50 (Lipitor) 10 mg HS PO 05/11/17 21:00 (Pill Splitter) 1 ea UNSCH PRN OTHER 05/11/17 12:15 (Dilaudid Pf Inj) 0.5 mg Q4H PRN IV PUSH 05/11/17 12:30 05/11/17 12:41 Pantoprazole Sodium 40 mg 40 mg Q12HR IV PUSH 05/11/17 23:00 (NS 1000 ml Inj) 1,000 ml @ 84 mls/hr [id number] IV 05/11/17 12:45 Family History [place] brother Throat cancer. Lung cancer No gastric or colon cancer. Social History Drinks socially GI Exam Vitals I&O Vital Signs Date Time Temp Pulse Resp B/P Pulse Ox O2 Delivery O2 Flow Rate FiO2 05/11/17 11:33 98.6 72 18 181/87 98 05/11/17 08:18 64 18 142/71 99 05/11/17 07:00 72 16 148/70 99 Room Air 05/11/17 06:26 100 21 05/11/17 05:23 67 22 156/72 100 Room Air 05/11/17 05:15 96 Room Air 05/11/17 00:22 81 20 115/56 99 Room Air 110/68 05/11/17 00:21 99 Room Air 05/11/17 00:21 Room Air 05/11/17 00:09 98.2 75 136/63 97 05/10/17 23:18 98.6 78 16 173/98 100 Room Air Laboratory Test 05/11/17 05/11/17 05/11/17 05/11/17 00:40 03:36 09:08 12:40 White Blood Count 8.3 TH/MM3 10.3 TH/MM3 Red Blood Count 4.86 MIL/MM3 5.33 MIL/MM3 Hemoglobin 13.8 GM/DL 14.9 GM/DL Hematocrit 41.6 % 46.0 % Mean Corpuscular Volume 85.7 FL 86.3 FL Mean Corpuscular Hemoglobin 28.4 PG 27.9 PG Mean Corpuscular Hemoglobin 33.2 % 32.3 % Concent Red Cell Distribution Width 13.5 % 14.0 % Platelet Count 242 TH/MM3 230 TH/MM3 Mean Platelet Volume 9.9 FL 10.8 FL Neutrophils (%) (Auto) 77.9 % 79.1 % Lymphocytes (%) (Auto) 18.6 % 16.6 % Monocytes (%) (Auto) 2.6 % 3.6 % Eosinophils (%) (Auto) 0.3 % 0.0 % Basophils (%) (Auto) 0.6 % 0.7 % Neutrophils # (Auto) 6.5 TH/MM3 8.2 TH/MM3 Lymphocytes # (Auto) 1.6 TH/MM3 1.7 TH/MM3 Monocytes # (Auto) 0.2 TH/MM3 0.4 TH/MM3 Eosinophils # (Auto) 0.0 TH/MM3 0.0 TH/MM3 Basophils # (Auto) 0.1 TH/MM3 0.1 TH/MM3 CBC Comment DIFF FINAL DIFF FINAL Differential Comment Prothrombin Time 11.5 SEC Prothromb Time International 1.0 RATIO Ratio Sodium Level 138 MEQ/L Potassium Level 3.5 MEQ/L Chloride Level 104 MEQ/L Carbon Dioxide Level 24.3 MEQ/L Anion Gap 10 MEQ/L Blood Urea Nitrogen 4 MG/DL Creatinine 0.86 MG/DL Estimat Glomerular Filtration 84 ML/MIN Rate Random Glucose 134 MG/DL Calcium Level 9.1 MG/DL Magnesium Level 1.9 MG/DL Total Bilirubin 0.7 MG/DL Aspartate Amino Transf 17 U/L (AST/SGOT) Alanine Aminotransferase 23 U/L (ALT/SGPT) Alkaline Phosphatase 90 U/L Total Creatine Kinase 132 U/L 153 U/L 143 U/L Creatine Kinase MB LESS THAN 0.5 0.6 NG/ML LESS THAN 0.5 NG/ML NG/ML Troponin I LESS THAN 0.02 LESS THAN 0.02 LESS THAN 0.02 NG/ML NG/ML NG/ML Total Protein 8.9 GM/DL Albumin 4.4 GM/DL Lipase 99 U/L Hematology Comments Physical Examination HEENT: Pupils round and reactive to light; normocephalic; atraumatic; no jaundice. Throat is clear. NECK: Neck is supple, no JVD, no lymphadenopathy. CHEST: Chest is clear to auscultation and percussion. CARDIAC: Regular rate and rhythm with no murmur gallop or rubs. ABDOMEN: Soft, nondistended, nontender; no hepatosplenomegaly; bowel sounds are present in all four quadrants. EXTREMITIES: No clubbing, cyanosis, or edema. SKIN: Normal; no rash; no jaundice. SCHEDULING MANAGER: No focal deficits; alert and oriented times three. Assessment and Plan Plan Impression: Epigastric pain with hematemesis. GERD Plan: EGD will be performed NPO Consents Further recommendations after the EGD. Momo Niño MD May 11, 2017 14:07
[2017-05-11] MEDS ORDERED: cloNIDine HCL 0.1 MG TAB PO PRN (14:15)
--- NOTE | 2017-05-11 15:22 | EKG ---
Date Performed: 05/11/2017 Time Performed: 06:36:37 PTAGE: 51 years EKG: Sinus rhythm WITH SINUS ARRHYTHMIA MODERATE VOLTAGE CRITERIA FOR LVH, CONSIDER NORMAL VARIANT NONSPECIFIC T-WAVE ABNORMALITY BORDERLINE ECG NO SIG CHANGE DOCTOR: Pete Turner Interpretating Date/Time 05/11/2017 15:21:56
--- NOTE | 2017-05-11 15:28 | EKG ---
Date Performed: 05/10/2017 Time Performed: 23:44:39 PTAGE: 51 years EKG: Sinus rhythm WITH SINUS ARRHYTHMIA MINIMAL VOLTAGE CRITERIA FOR LVH, CONSIDER NORMAL VARIANT POOR R WAVE PROGRESS ION NEW SINCE PRIOR NONSPECIFIC T-WAVE ABNORMALITY BORDERLINE ECG CLINICAL CORRELATION SUGGESTED PREVIOUS TRACING : 03/27/2016 06.12 DOCTOR: Pete Turner Interpretating Date/Time 05/11/2017 15:27:37
[2017-05-11] MEDS ORDERED: PROPOFOL 100 MG/10 ML INJ IV ONE (15:59)
[2017-05-11] MEDS: SODIUM CHLOR 0.9% 1000 ML INJ 1,000 ML IV SCH (16:00)
--- NOTE | 2017-05-11 16:12 | HHI.GIFU ---
Subjective Remarks Immediate postop note: EGD with biopsy Indication: hematemesis, epigastric pain Meds: GET Findings: Esophagus: distal irritation with oozing. No visible vessel Stomach: no blood in stomach. Moderate size HH, mild gastritis. Biopsy taken Gastric antrum: pancreatic rest with typical umbilication. Duodenum: normal Imp: GERD with HH Gastritis Pancreatic rest. Low risk of massive bleeding REc: Protonix drip. Nausea medication. Clear liquids. Once feeling better, probably tomorrow, home on PPI BID Objective Vitals I&O Vital Signs Date Time Temp Pulse Resp B/P Pulse Ox O2 Delivery O2 Flow Rate FiO2 05/11/17 15:06 99.9 68 18 148/86 98 05/11/17 13:11 20 05/11/17 11:33 98.6 72 18 181/87 98 05/11/17 08:18 64 18 142/71 99 05/11/17 07:00 72 16 148/70 99 Room Air 05/11/17 06:26 100 21 05/11/17 05:23 67 22 156/72 100 Room Air 05/11/17 05:15 96 Room Air 05/11/17 00:22 81 20 115/56 99 Room Air 110/68 05/11/17 00:21 99 Room Air 05/11/17 00:21 Room Air 05/11/17 00:09 98.2 75 136/63 97 05/10/17 23:18 98.6 78 16 173/98 100 Room Air Laboratory Laboratory Tests Test 05/11/17 05/11/17 05/11/17 05/11/17 00:40 03:36 09:08 12:40 White Blood Count 8.3 10.3 Red Blood Count 4.86 5.33 Hemoglobin 13.8 14.9 Hematocrit 41.6 46.0 Mean Corpuscular Volume 85.7 86.3 Mean Corpuscular Hemoglobin 28.4 27.9 Mean Corpuscular Hemoglobin 33.2 32.3 Concent Red Cell Distribution Width 13.5 14.0 Platelet Count 242 230 Mean Platelet Volume 9.9 10.8 Neutrophils (%) (Auto) 77.9 79.1 Lymphocytes (%) (Auto) 18.6 16.6 Monocytes (%) (Auto) 2.6 3.6 Eosinophils (%) (Auto) 0.3 0.0 Basophils (%) (Auto) 0.6 0.7 Neutrophils # (Auto) 6.5 8.2 Lymphocytes # (Auto) 1.6 1.7 Monocytes # (Auto) 0.2 0.4 Eosinophils # (Auto) 0.0 0.0 Basophils # (Auto) 0.1 0.1 CBC Comment DIFF FINAL DIFF FINAL Differential Comment Prothrombin Time 11.5 Prothromb Time International 1.0 Ratio Sodium Level 138 Potassium Level 3.5 Chloride Level 104 Carbon Dioxide Level 24.3 Anion Gap 10 Blood Urea Nitrogen 4 Creatinine 0.86 Estimat Glomerular Filtration 84 Rate Random Glucose 134 Calcium Level 9.1 Magnesium Level 1.9 Total Bilirubin 0.7 Aspartate Amino Transf 17 (AST/SGOT) Alanine Aminotransferase 23 (ALT/SGPT) Alkaline Phosphatase 90 Total Creatine Kinase 132 153 143 Creatine Kinase MB LESS THAN 0.5 0.6 LESS THAN 0.5 Troponin I LESS THAN 0.02 LESS THAN 0.02 LESS THAN 0.02 Total Protein 8.9 Albumin 4.4 Lipase 99 Hematology Comments Physical Exam HEENT: Pupils round and reactive to light; normocephalic; atraumatic; no jaundice. Throat is clear. NECK: Neck is supple, no JVD, no lymphadenopathy. CHEST: Chest is clear to auscultation and percussion. CARDIAC: Regular rate and rhythm with no murmur gallop or rubs. ABDOMEN: Soft, nondistended, nontender; no hepatosplenomegaly; bowel sounds are present in all four quadrants. EXTREMITIES: No clubbing, cyanosis, or edema. SKIN: Normal; no rash; no jaundice. DRYING FRAME OPERATOR: No focal deficits; alert and oriented times three. Assessment and Plan Plan Impression: Epigastric pain with hematemesis. GERD Plan: EGD will be performed NPO Consents Further recommendations after the EGD. Momo Niño MD May 11, 2017 16:12
[2017-05-11] MEDS ORDERED: *RESP: ALBUTEROL 2.5 MG/3 ML NEB (PRN) PERIprocedural Use ONLY NEB ONE (16:23)
[2017-05-11] MEDS ORDERED: *HYDROmorphone PF 1 MG VIAL PERIprocedural Use ONLY ONE (16:27)
[2017-05-11] MEDS ORDERED: PROMETHAZINE HCL 25 MG SUPP RECTAL PRN (17:45)
[2017-05-11] MEDS ORDERED: DO NOT ADM ANY ANTICOAGULANT DRUGS PRN (18:00)
[2017-05-11] MEDS: PANTOPRAZOLE INJ 80 MG in SODIUM CHLORIDE 0.9% INJ 100 ML IV SCH (21:01)
[2017-05-11 22:04] LABS: HEMATOCRIT 41.9 % (35.0-46.0); REVIEW FLAG FINAL
[2017-05-11] MEDS: ATORVASTATIN 10 MG TAB PO SCH (22:47)
[2017-05-11] MEDS ORDERED: PANTOPRAZOLE SODIUM 40 MG VIAL IV PUSH SCH (23:00)
[2017-05-12] VITALS (8 sets, daily range): BP systolic 137–183; BP diastolic 80–92; PULSE 56–72; RESP 16–20; TEMP 98.1–99.6; O2SAT 97–100
[2017-05-12] MEDS: SODIUM CHLOR 0.9% 1000 ML INJ 1,000 ML IV SCH ×2 (00:40→15:09)
[2017-05-12] MEDS: HYDROmorphone HCL PF 1 MG/ML VIAL IV PUSH PRN ×3 (03:15→15:14)
[2017-05-12] MEDS: ONDANSETRON HCL 4 MG/2 ML VIAL IV PRN ×3 (04:35→22:48)
[2017-05-12 05:48] LABS: AUTOMATED NEUTROPHIL # 7.7 TH/MM3 (1.8-7.7); BASOPHIL % 0.4 % (0.0-2.0); EOSINOPHIL # 0.1 TH/MM3 (0-0.4); EOSINOPHIL % 0.6 % (0.0-4.0); HEMO FLAGS DIFF FINAL; LYMPH % 33.3 % (9.0-44.0); LYMPHOCYTE # 4.6 TH/MM3 (1.0-4.8); MEAN CORPUSCULAR HEMOGLOBIN 28.4 PG (27.0-34.0); MEAN CORPUSCULAR HGB CONC 32.6 % (32.0-36.0); MONO % 9.7 % (0.0-8.0); PLATELET COUNT 229 TH/MM3 (150-450); RED BLOOD COUNT 4.71 MIL/MM3 (4.00-5.30); RED CELL DISTRIBUTION WIDTH 13.8 % (11.6-17.2); WHITE BLOOD COUNT 13.7 TH/MM3 (4.0-11.0)
[2017-05-12 06:18] LABS: BICARBONATE 30.5 MEQ/L (21.0-32.0); MAGNESIUM 2.1 MG/DL (1.5-2.5); POTASSIUM 3.1 MEQ/L (3.5-5.1)
[2017-05-12] MEDS ORDERED: POTASSIUM CHLORIDE 20 MEQ CONTROLLED RELEASE TAB PO ONE (07:00)
--- NOTE | 2017-05-12 07:16 | MR ---
cc: FLAQUITA MORENO,MOMO Koch JR., MD DATE 05/11/2017 PROCEDURE Esophagogastroduodenoscopy with biopsy. INDICATION Hematemesis and epigastric pain REFERRING PHYSICIAN Dr. Moreno PROCEDURE After informed consent was obtained, the patient was placed in the supine position. She was given general endotracheal anesthesia. After adequate sedation was achieved, the Pentax video gastroscope was inserted in the oropharynx and advanced to the esophagus, stomach and duodenum. It was then slowly withdrawn examining the mucosal surfaces carefully. Retroflex exam was performed in the fundus and cardia. The scope was then straightened and biopsies were obtained from the gastric antrum. The scope was then slowly withdrawn through the esophagus and the procedure was terminated. She tolerated the procedure well and was returned to the recovery area in good condition. FINDINGS 1. The esophagus shows some digital irritation with oozing but no visible vessel present. 2. In the stomach, there was no blood in the stomach. There is a moderate sized hiatal hernia with mild gastritis. A biopsy was taken from the antrum. 3. In the gastric antrum, there was a pancreatic crest with a typical umbilication 4. The duodenum was normal. IMPRESSION 1. Gastroesophageal reflux disease with hiatal hernia. 2. Gastritis 3. Pancreatic crest 4. Low risk of massive bleeding but the bleeding is coming from the distal esophagus. RECOMMENDATIONS 1. She should take a Protonix drip IV. 2. Nausea medication and try to avoid vomiting. 3. Clear liquids or full liquids should be tolerated. 4. Once feeling better, advance diet. She probably will be able to go home tomorrow on a proton pump inhibitor b.i.d. Momo Niño MD HHS/DJL /4:22 PM /7:11 AM
[2017-05-12] MEDS: PANTOPRAZOLE INJ 80 MG in SODIUM CHLORIDE 0.9% INJ 100 ML IV SCH (07:44)
[2017-05-12] MEDS: SODIUM CHLORIDE 0.9% FLUSH 10 ML FLUSH IV FLUSH SCH ×2 (07:46→22:02)
[2017-05-12] MEDS: amLODIPine BESYLATE 5 MG TAB PO SCH (08:21)
--- NOTE | 2017-05-12 08:58 | HHI.PR ---
Subjective Remarks Follow-up for hematemesis and abdominal pain. The patient reports continued epigastric abdominal pain with some radiation into the chest, associated with nausea but no vomiting overnight. Last BM was 2 days ago. She states she hardly ate any of her liquid tray last night for dinner. Has not yet attempted breakfast this morning. She does not feel ready for discharge yet. Denies any other medical complaints at this time. Objective Vitals Vital Signs Date Time Temp Pulse Resp B/P Pulse Ox O2 Delivery O2 Flow Rate FiO2 05/12/17 07:51 98.1 60 16 142/81 100 05/12/17 04:00 98.5 68 18 143/91 97 05/12/17 03:54 18 05/11/17 23:58 98.5 64 18 133/73 97 05/11/17 23:40 70 05/11/17 21:20 98.0 77 12 135/80 92 05/11/17 19:05 98 21 05/11/17 17:49 98.4 76 20 156/87 97 05/11/17 17:15 98.0 72 20 121/68 99 Room Air 05/11/17 17:00 73 20 124/65 99 Room Air 05/11/17 16:45 77 20 120/68 98 Room Air 05/11/17 16:30 94 20 150/75 100 Room Air 05/11/17 16:18 98.0 105 20 146/85 99 Nasal Cannula 2 05/11/17 15:06 99.9 68 18 148/86 98 05/11/17 11:33 98.6 72 18 181/87 98 I/O 05/11/17 05/11/17 05/11/17 05/12/17 05/12/17 05/12/17 07:00 15:00 23:00 07:00 15:00 23:00 Intake Total 1075 ml 200 ml 100 ml Balance 1075 ml 200 ml 100 ml Intake Oral 500 ml 200 ml 100 ml IV Total 475 ml Other 100 ml Result Diagram: 05/12/17 0503 05/12/17 0503 Imaging Last Impressions Chest X-Ray 05/11/17 0010 Signed Impressions: Service Date/Time: Thursday, May 11, 2017 00:39 - CONCLUSION: No evidence of acute cardiopulmonary disease. Rober Wade MD Aorta CTA 05/11/17 0000 Signed Impressions: Service Date/Time: Thursday, May 11, 2017 04:48 - CONCLUSION: 1. No aneurysm or dissection of the aorta. There is mild atherosclerotic plaque of the abdominal aorta. Please see above. 2. Clear lungs. 3. Left anterior descending coronary artery calcification. 4. Fatty liver. 5. Small to moderate hiatal hernia. Rober Wade MD Objective Remarks GENERAL: Well-nourished, well-developed middle aged female patient in [facility]. SKIN: Warm and dry. No rash. HEENT: Normocephalic. Atraumatic. Pupils equal and round. Mucous membranes pink and moist. NECK: Supple. Trachea midline. CARDIOVASCULAR: Regular rate and rhythm. S1, S2 noted. No murmur appreciated. RESPIRATORY: No accessory muscle use. Clear to auscultation. Breath sounds equal bilaterally. GASTROINTESTINAL: Abdomen soft, nondistended, mild epigastric TTP. Normoactive bowel sounds x4. MUSCULOSKELETAL: No obvious deformities. Extremities without clubbing, cyanosis , or edema. NEUROLOGICAL: Awake and alert. No obvious cranial nerve deficits. Motor grossly within normal limits. Normal speech. PSYCHIATRIC: Appropriate mood and affect; insight and judgment normal. Medications and IVs Current Medications Medications (Trade) Dose Ordered Sig/Margaret Route Start Time Stop Time Status Last Admin (NS Flush) 2 ml UNSCH PRN IV FLUSH 05/11/17 06:15 (NS Flush) 2 ml BID IV FLUSH 05/11/17 09:00 05/12/17 07:46 (Tylenol) 500 mg Q4H PRN PO 05/11/17 06:15 (Zofran Inj) 4 mg Q6H PRN IV 05/11/17 06:15 05/12/17 04:35 (Nitrostat Sl) 0.4 mg Q5M PRN SL 05/11/17 06:15 (Norvasc) 2.5 mg DAILY PO 05/11/17 11:45 05/12/17 08:21 (Lipitor) 10 mg HS PO 05/11/17 21:00 05/11/17 22:47 (Pill Splitter) 1 ea UNSCH PRN OTHER 05/11/17 12:15 Hydromorphone HCl 0.5 mg 0.5 mg Q4H PRN IV PUSH 05/11/17 12:30 05/12/17 03:15 (NS 1000 ml Inj) 1,000 ml @ 84 mls/hr [id number] IV 05/11/17 12:45 05/12/17 00:40 Clonidine 0.1 mg 0.1 mg Q6H PRN PO 05/11/17 14:15 (Protonix Inj/NS Inj) 100 ml @ 10 mls/hr CONTINUOUS IV 05/11/17 18:00 05/12/17 07:44 (Phenergan Supp) 25 mg Q6H PRN RECTAL 05/11/17 17:45 05/12/17 08:23 Miscellaneous Information ALL NURSING DEPARTME... UNSCH PRN .XX 05/11/17 18:00 05/12/17 17:59 A/P Assessment and Plan 51-year-old female with a past medical history of HTN, HLD, GERD, tobacco abuse who presented with epigastric discomfort and transferred to hospitalist service for hematemesis GI bleed: Hemoglobin is stable, 13.8 --> 14.9 --> 13.2 --> 13.4. GI consulted, EGD 05/11 showed distal esophagus oozing blood, mild gastritis, and pancreatic crest; bleeding likely coming from distal esophagus. GI changed IV protonix bid to IV protonix drip. Diet per GI, currently on full liquids. Continue IVF. Monitor H&H. Zofran prn N/V. Atypical chest pain: Suspect secondary to above. Troponins negative 3 and EKG without acute ischemic changes. Per [facility] shot man, Dr. Turner, symptoms do not seem consistent with an acute cardiac process, recommended outpatient cardiology follow-up. Continue statin. Hypertension: Currently not well controlled, possibly secondary to pain. Continue home amlodipine. Clonidine as needed. DVT prophylaxis: SCDs, avoid chemical prophylaxis with GI bleeding as above. Discharge Planning Pending further clinical improvement and clearance from GI. Kaylin Noland PA-C May 12, 2017 8:58 am
--- NOTE | 2017-05-12 10:52 | HHI.GIFU ---
Subjective Remarks Had nausea overnight and c/o ongoing epigastric discomfort. Was initially afraid to advance diet. Slightly improved this am. Will add trial of carafate and advance diet to see how she does. Objective Vitals I&O Vital Signs Date Time Temp Pulse Resp B/P Pulse Ox O2 Delivery O2 Flow Rate FiO2 05/12/17 07:51 98.1 60 16 142/81 100 05/12/17 04:00 98.5 68 18 143/91 97 05/12/17 03:54 18 05/11/17 23:58 98.5 64 18 133/73 97 05/11/17 23:40 70 05/11/17 21:20 98.0 77 12 135/80 92 05/11/17 19:05 98 21 05/11/17 17:49 98.4 76 20 156/87 97 05/11/17 17:15 98.0 72 20 121/68 99 Room Air 05/11/17 17:00 73 20 124/65 99 Room Air 05/11/17 16:45 77 20 120/68 98 Room Air 05/11/17 16:30 94 20 150/75 100 Room Air 05/11/17 16:18 98.0 105 20 146/85 99 Nasal Cannula 2 05/11/17 15:06 99.9 68 18 148/86 98 05/11/17 11:33 98.6 72 18 181/87 98 I/O 05/11/17 05/11/17 05/11/17 05/12/17 05/12/17 05/12/17 07:00 15:00 23:00 07:00 15:00 23:00 Intake Total 1075 ml 200 ml 100 ml Balance 1075 ml 200 ml 100 ml Intake Oral 500 ml 200 ml 100 ml IV Total 475 ml Other 100 ml Laboratory Laboratory Tests Test 05/11/17 05/11/17 05/12/17 12:40 21:08 05:03 White Blood Count 10.3 13.7 Red Blood Count 5.33 4.71 Hemoglobin 14.9 13.2 13.4 Hematocrit 46.0 41.9 41.0 Mean Corpuscular Volume 86.3 87.0 Mean Corpuscular Hemoglobin 27.9 28.4 Mean Corpuscular Hemoglobin 32.3 32.6 Concent Red Cell Distribution Width 14.0 13.8 Platelet Count 230 229 Mean Platelet Volume 10.8 10.2 Neutrophils (%) (Auto) 79.1 56.0 Lymphocytes (%) (Auto) 16.6 33.3 Monocytes (%) (Auto) 3.6 9.7 Eosinophils (%) (Auto) 0.0 0.6 Basophils (%) (Auto) 0.7 0.4 Neutrophils # (Auto) 8.2 7.7 Lymphocytes # (Auto) 1.7 4.6 Monocytes # (Auto) 0.4 1.3 Eosinophils # (Auto) 0.0 0.1 Basophils # (Auto) 0.1 0.0 CBC Comment DIFF FINAL DIFF FINAL Differential Comment Hematology Comments Total Creatine Kinase 143 Creatine Kinase MB LESS THAN 0.5 Troponin I LESS THAN 0.02 Sodium Level 140 Potassium Level 3.1 Chloride Level 102 Carbon Dioxide Level 30.5 Anion Gap 8 Blood Urea Nitrogen 7 Creatinine 0.88 Estimat Glomerular Filtration 81 Rate Random Glucose 109 Calcium Level 9.0 Magnesium Level 2.1 Imaging Last Impressions Chest X-Ray 05/11/17 0010 Signed Impressions: Service Date/Time: Thursday, May 11, 2017 00:39 - CONCLUSION: No evidence of acute cardiopulmonary disease. Rober Wade MD Aorta CTA 05/11/17 0000 Signed Impressions: Service Date/Time: Thursday, May 11, 2017 04:48 - CONCLUSION: 1. No aneurysm or dissection of the aorta. There is mild atherosclerotic plaque of the abdominal aorta. Please see above. 2. Clear lungs. 3. Left anterior descending coronary artery calcification. 4. Fatty liver. 5. Small to moderate hiatal hernia. Rober Wade MD Physical Exam HEENT: Normocephalic; atraumatic; no jaundice. CHEST: CTA CARDIAC: RRR ABDOMEN: Soft, nondistended, nontender; no hepatosplenomegaly; bowel sounds are present in all four quadrants. EXTREMITIES: No clubbing, cyanosis, or edema. SKIN: Normal; no rash; no jaundice. CANCER PROGRAM DIRECTOR: No focal deficits; alert and oriented times three. Assessment and Plan Plan Impression: - Epigastric pain with hematemesis. S/P EGD (05/11/17)----> The esophagus shows some digital irritation with oozing but no visible vessel present, in the stomach there was no blood in the stomach. There is a moderate sized hiatal hernia with mild gastritis. A biopsy was taken from the antrum. In the gastric antrum, there was a pancreatic crest with a typical umbilication. Low risk fo massive bleeding but the bleeding is coming from the distal esophagus. Continues to have epigastric discomfort and had nausea overnight. No active bleeding. PPI. Will add carafate and advance diet. - GERD. PPI. - Atypical chest pain. S/P workup - HTN per primary PLAN: - Heart healthy soft diet - Await pathology - Cont. PPI - Add Carafate - If tolerates diet, okay to d/c home with outpatient fu - FU JOHN 2 weeks - Consider EUS as outpatient for pancreatic rest - Supportive care - Further recommendations to follow based on results of above - Pt seen and examined by Dr. Niño and myself and this note is written on his behalf Tiana Caraballo May 12, 2017 10:52
[2017-05-12] MEDS: SUCRALFATE 1 GM/10 ML CUP PO SCH ×3 (11:13→22:01)
[2017-05-12 16:05] LABS: HEMATOCRIT 40.4 % (35.0-46.0); REVIEW FLAG FINAL
--- NOTE | 2017-05-12 17:17 | EKG ---
Date Performed: 05/11/2017 Time Performed: 09:55:09 PTAGE: 51 years EKG: Sinus rhythm WITH SINUS ARRHYTHMIA MINIMAL VOLTAGE CRITERIA FOR LVH, CONSIDER NORMAL VARIANT NONSPECIFIC T-WAVE A BNORMALITY BORDERLINE ECG PREVIOUS TRACING : 05/11/2017 06.36 Compared to prior tracing no significant change DOCTOR: Anisa Ladd Interpretating Date/Time 05/12/2017 17:14:48
[2017-05-12] MEDS: PANTOPRAZOLE SOD 40 MG DELAYED RELEASE TAB PO SCH (21:00)
[2017-05-12] MEDS: ATORVASTATIN 10 MG TAB PO SCH (22:02)
[2017-05-13] MEDS: SUCRALFATE 1 GM/10 ML CUP PO SCH (07:19)
[2017-05-13] MEDS: ONDANSETRON HCL 4 MG/2 ML VIAL IV PRN (07:19)
[2017-05-13] MEDS: SODIUM CHLOR 0.9% 1000 ML INJ 1,000 ML IV SCH (07:20)
[2017-05-13 07:30] VITALS: O2SAT 92
[2017-05-13 07:52] VITALS: BP 167/90; PULSE 64; RESP 17; TEMP 98.6; O2SAT 97
[2017-05-13] MEDS ORDERED: SUCR1S PO (08:19)
[2017-05-13] MEDS ORDERED: ONDA4TAB7 SL (08:19)
[2017-05-13] MEDS ORDERED: PANT40TA3 PO (08:19)
--- NOTE | 2017-05-13 08:20 | HHI.DCPOC ---
Discharge Care Plan Diagnosis: (1) Hematemesis (2) Abdominal pain (3) Gastritis Goals to Promote Your Health * To prevent worsening of your condition and complications * To maintain your health at the optimal level Directions to Meet Your Goals Take your medications as prescribed Follow your dietary instruction Follow activity as directed Keep your appointments as scheduled Take your immunizations and boosters as scheduled If your symptoms worsen call your PCP, if no PCP go to Urgent Care Center or Emergency Room Smoking is Dangerous to Your Health. Avoid second hand smoke Call the 24-hour hour crisis hotline for domestic abuse at Kaylin Noland PA-C May 13, 2017 8:20 am
--- NOTE | 2017-05-13 08:29 | HHI.DS ---
Discharge Summary Admission Date May 11, 2017 at 6:10 am Discharge Date: May 13, 2017 Admitting Diagnosis chest pain, rule out ACS (1) Hematemesis ICD Code: K92.0 Diagnosis: Principal (2) Abdominal pain ICD Code: R10.9 Diagnosis: Principal (3) Gastritis ICD Code: K29.70 Diagnosis: Principal Procedures EGD 05/11/[address] Niño showed distal esophagus oozing blood, mild gastritis , and pancreatic crest; bleeding likely coming from distal esophagus. Brief History - From Admission This is a 51-year-old female that presents to the ED with a complaint of epigastric discomfort as well as chest discomfort. She states the discomfort radiates from the epigastric region into the chest. She has been nauseous but has had no emesis. States she has had issues of GERD in the past but cannot recall ever having a GI workup. Upon review records she had a nonischemic Lexiscan March 2016. Denies recent travel. Denies fevers or chills. While entering the examination room patient apparently just had an episode of emesis. There is coffee-ground emesis at that time. CBC/BMP: 05/12/17 1534 05/12/17 0503 Significant Findings Laboratory Tests Test 05/11/17 05/11/17 05/11/17 05/11/17 00:40 03:36 09:08 12:40 Neutrophils (%) (Auto) 77.9 % 79.1 % (16.0-70.0) (16.0-70.0) Blood Urea Nitrogen 4 MG/DL (7-18) Estimat Glomerular Filtration 84 ML/MIN (>89) Rate Random Glucose 134 MG/DL (74-106) Creatine Kinase MB LESS THAN 0.5 LESS THAN 0.5 NG/ML (0.5-3.6) NG/ML (0.5-3.6) Troponin I LESS THAN 0.02 LESS THAN 0.02 LESS THAN 0.02 NG/ML NG/ML NG/ML (0.02-0.05) (0.02-0.05) (0.02-0.05) Total Protein 8.9 GM/DL (6.4-8.2) Red Blood Count 5.33 MIL/MM3 (4.00-5.30) Neutrophils # (Auto) 8.2 TH/MM3 (1.8-7.7) Test 05/12/17 05:03 White Blood Count 13.7 TH/MM3 (4.0-11.0) Monocytes (%) (Auto) 9.7 % (0.0-8.0) Monocytes # (Auto) 1.3 TH/MM3 (0-0.9) Potassium Level 3.1 MEQ/L (3.5-5.1) Estimat Glomerular Filtration 81 ML/MIN (>89) Rate Random Glucose 109 MG/DL (74-106) PE at Discharge GENERAL: Well-nourished, well-developed middle aged female patient in [facility]. SKIN: Warm and dry. No rash. HEENT: Normocephalic. Atraumatic. Pupils equal and round. Mucous membranes pink and moist. NECK: Supple. Trachea midline. CARDIOVASCULAR: Regular rate and rhythm. S1, S2 noted. No murmur appreciated. RESPIRATORY: No accessory muscle use. Clear to auscultation. Breath sounds equal bilaterally. GASTROINTESTINAL: Abdomen soft, nondistended, mild epigastric TTP. Normoactive bowel sounds x4. MUSCULOSKELETAL: No obvious deformities. Extremities without clubbing, cyanosis , or edema. NEUROLOGICAL: Awake and alert. No obvious cranial nerve deficits. Motor grossly within normal limits. Normal speech. PSYCHIATRIC: Appropriate mood and affect; insight and judgment normal. Pt update on day of discharge Follow up for abdominal pain, GI bleeding. The patient reports feeling better today. She has intermittent waves of nausea but no vomiting yesterday or today. She has been tolerating full liquid diet and wants to continue on this for a few days after discharge because she is nervous to try solid foods yet. Her abdominal pain is much improved. Denies any fevers/chills. She wants to go home today. She has a PCP appt with Dr. Valadez tomorrow. Hospital Course The patient was initially admitted to the chest pain center with epigastric discomfort radiating to the chest. ACS was ruled out with negative cardiac enzymes and EKG without acute ischemic changes. While in the chest pain center , patient had an episode of coffee-ground emesis therefore she was transferred to the hospitalist with gastroenterology consultation. The patient underwent EGD on 05/11/17 which showed distal esophagus oozing blood, mild gastritis, and pancreatic crest; bleeding likely coming from distal esophagus. Hemoglobin remained mostly stable, 13.8 --> 14.9 --> 13.2 --> 13.4. The patient was initially on IV Protonix drip, then change to Protonix oral 40 mg twice a day. She was given IV dilaudid prn for breakthrough pain although explained to her this may be worsening her nausea. She was also started on Carafate achs which improved her pain. Her diet was advanced to heart healthy, however patient did not feel comfortable eating solid foods yet, therefore placed back on full liquid diet and patient tolerated well. Patient requested to be discharged as she is feeling much better, no further vomiting 24 hours. She plans to continue with soft foods and full liquid diet for the next 1-2 days, and advance as tolerated. She has an appt with her PCP Dr. Valadez tomorrow 05/14 and was instructed to follow up with gastroenterology for biopsy results. Pt Condition on Discharge: Stable Discharge Disposition: Discharge Home Discharge Time: <= 30 minutes Discharge Instructions DIET: Follow Instructions for: As Tolerated, No Restrictions, Heart Healthy Diet, Soft Diet, Full Liquid Diet Additional Diet Instructions: Ok to continue with liquid and soft diet over the next few days. Stay well hydrated. Advance diet as tolerated. Activities you can perform: Regular-No Restrictions Follow up Referrals: Gastroenterology - 1 Week @ [facility] PCP Follow-up - 1 Week with Rosibel Valadez MD New Medications: Ondansetron Odt (Ondansetron Odt) 4 Mg Tab 4 MG SL Q8HR PRN Nausea/Vomiting #21 Ref 0 TAB Pantoprazole (Pantoprazole) 40 Mg Tab 40 MG PO Q12HR Manage Heartburn #60 TAB Sucralfate Liq (Sucralfate Liq) 1 Gm/10 Ml Rocio 1 GM PO ACHS esophagitis/gastritis Days 10 ML Continued Medications: Amlodipine (Amlodipine) 2.5 Mg Tab 2.5 MG PO DAILY Blood Pressure Management #30 Ref 0 TAB Atorvastatin (Atorvastatin) 10 Mg Tab 10 MG PO HS Cholesterol Management #30 Ref 0 TAB Discontinued Medications: Omeprazole (Omeprazole) 10 Mg Cap 10 MG PO DAILY #30 Ref 0 CAP Kaylin Noland F PA-C May 13, 2017 8:29 am
[2017-05-13] MEDS: SODIUM CHLORIDE 0.9% FLUSH 10 ML FLUSH IV FLUSH SCH (08:45)
[2017-05-13] MEDS: PANTOPRAZOLE SOD 40 MG DELAYED RELEASE TAB PO SCH (10:09)
[2017-05-13] MEDS: amLODIPine BESYLATE 5 MG TAB PO SCH (10:11)
== END 2017-05-13 11:32 | disposition home or self-care (01) ==
LOC: NEPE 23:12 → NEDA 05-11 06:10 → NEPGCP 05-11 08:30
PROVIDERS: ADMIT Hospitalist; ATTEND Hospitalist
DX: K92.2 Gastrointestinal hemorrhage, unspecified (principal); I70.0 Atherosclerosis of aorta; I49.8 Other specified cardiac arrhythmias; K76.0 Fatty (change of) liver, not elsewhere classified; K29.50 Unspecified chronic gastritis without bleeding; R07.9 Chest pain, unspecified; R10.13 Epigastric pain; K21.9 Gastro-esophageal reflux disease without esophagitis; R11.10 Vomiting, unspecified; K44.9 Diaphragmatic hernia without obstruction or gangrene; K92.0 Hematemesis; I25.10 Atherosclerotic heart disease of native coronary artery without angina pectoris; I10 Essential (primary) hypertension; E78.5 Hyperlipidemia, unspecified; E78.00 Pure hypercholesterolemia, unspecified; M54.2 Cervicalgia; M54.9 Dorsalgia, unspecified; M25.519 Pain in unspecified shoulder; G89.29 Other chronic pain; H90.5 Unspecified sensorineural hearing loss; F17.210 Nicotine dependence, cigarettes, uncomplicated; F12.90 Cannabis use, unspecified, uncomplicated; Z79.899 Other long term (current) drug therapy
CPT/HCPCS: 00740; 43239; 71010; 71275; 74174; 80048; 80053; 82550; 82552; 83690; 83735; 84484; 85014; 85018; 85025; 85610; 88305; 88312; 93005; 94664; 96361; 96374; 96375; 99285; C9113; G0378; J1170; J1885; J2405; J7030; J7613; Q9967

== ENCOUNTER 2017-12-16 12:26 | Emergency (ER) | payer OTHER ==
[~2017-12-16] VITALS: Ht 170.2 cm; Wt 95.0 kg
[~2017-12-16 12:26] MED LIST changes: -OMEP10CA PO; +ONDA4TAB7 SL; +PANT40TA3 PO; +SUCR1S PO
[2017-12-16 12:28] VITALS: BP 142/99; PULSE 88; RESP 16; TEMP 99.2; O2SAT 96
[2017-12-16] MEDS ORDERED: NEOM1SOL7 LEFT EAR (13:40)
--- NOTE | 2017-12-16 13:44 | PD ---
HPI Chief Complaint: ENT Complaint Time Seen by Provider: 13:35 Travel History International Travel<30 days: No Contact w/Intl Traveler<30days: No Traveled to known affect area: No History of Present Illness HPI This is a 52-year-old female presents for evaluation of left otalgia. She reports that approximately 6 months ago she believes that she maybe gotten a piece of cotton from a Q-tip stuck in her left ear. She reports over the past 3 or 4 days she has developed pain in her left ear. Pain is throbbing, constant , worse with manipulation of the left ear. Denies any drainage, cough, congestion. Denies any recent travel or recent swimming. She reports that she saw her primary care physician S today who told her that she had wax in her ear. She presents today now for further evaluation. No other complaints at this time. PFSH Past Medical History Arthritis: No Heart Rhythm Problems: Yes Cancer: No Cardiac Catheterization: No Cardiovascular Problems: Yes (chest pain) High Cholesterol: No Chest Pain: No Congestive Heart Failure: No Cerebrovascular Accident: No Diabetes: No Diminished Hearing: Yes (YES PT IS DEAF, ABLE TO READ LIPS) Endocrine: No GERD: Yes Genitourinary: No Headaches: Yes Hypertension: Yes Immune Disorder: No Musculoskeletal: Yes (CHRONIC BACK NECK AND SHOULDER PAIN) Neurologic: Yes Psychiatric: No Reproductive: No Respiratory: No Immunizations Current: Yes Migraines: Yes Seizures: Yes Thyroid Disease: No ?: Not Menopausal: Yes : 6 Para: 4 Miscarriage: 1 : 1 Dilation and Curettage (D&C): Yes Tubal Ligation: Yes Past Surgical History Abdominal Surgery: Yes (APPENDECTOMY) Appendectomy: Yes Cardiac Surgery: No Coronary Artery Bypass Graft: No Ear Surgery: No Endocrine Surgery: No Eye Surgery: No Genitourinary Surgery: No Gynecologic Surgery: Yes (D&C) Hysterectomy: Yes Oral Surgery: No Thoracic Surgery: No Other Surgery: Yes Social History Alcohol Use: Yes (OCC) Tobacco Use: Yes (11/02 ppd) Substance Use: Yes (MARIJUANA DAILY) Allergies-Medications (Allergen,Severity, Reaction): Coded Allergies: aspirin (Unverified Allergy, Mild, Nausea/Vomiting, 12/16/17) morphine (Unverified Adverse Reaction, Mild, TINGLING IN EXTREMITIES, 12/16) adhesive (Unverified Adverse Reaction, Unknown, 12/16/17) pulls skin off Reported Meds & Prescriptions Reported Meds & Active Scripts Active Hhrtvchw-Eijfouigx-JK Otic Drops 3.5-10,000-1 Mg-Units-% Soln 4 Drop LEFT EAR QID 10 Days Pantoprazole (Pantoprazole Sodium) 40 Mg Tab 40 Mg PO Q12HR Reported Atorvastatin (Atorvastatin Calcium) 10 Mg Tab 10 Mg PO HS Amlodipine (Amlodipine Besylate) 2.5 Mg Tab 2.5 Mg PO DAILY Review of Systems General / Constitutional: No: Fever, Chills HENT: Positive: Earache, No: Ear Discharge Physical Exam Narrative GENERAL: Well-developed well-nourished female in no acute distress SKIN: Warm and dry. HEAD: Atraumatic. Normocephalic. EYES: Pupils equal and round. No scleral icterus. No injection or drainage. ENT: No nasal bleeding or discharge. Mucous membranes pink and moist. The left external ear canal is edematous and erythematous wholly consistent with otitis externa. She does have a cerumen impaction as well. Right tympanic membranes appears normal without erythema or fluid level. NECK: Trachea midline. No JVD. Data Data Last Documented VS Vital Signs Date Time Temp Pulse Resp B/P (MAP) Pulse Ox O2 Delivery O2 Flow Rate FiO2 12/16/17 12:28 99.2 88 16 142/99 (113) 96 Orders Orders Ed Discharge Order (12/16/17 13:40) MDM Medical Decision Making Medical Screen Exam Complete: Yes Emergency Medical Condition: Yes Medical Record Reviewed: Yes Differential Diagnosis Otitis externa, cerumen impaction, retained foreign body, otitis media Narrative Course Examination is wholly consistent with left otitis externa. She has cerumen in the ear canal as well and there certainly could be a retained cotton foreign body from several months ago however irrigation or retrieval of any foreign body would be impossible at this time because of the otitis externa. The patient will be treated with Cortisporin otic solution and recommended follow- up in one week with her primary care physician or an ENT specialist. She is agreeable to this plan. Stable for discharge. Diagnosis Primary Impression: Left otitis externa Additional Impression: Foreign body sensation in left ear canal Referrals: Osmar Berry MD Additional Instructions: Follow-up with your primary care physician or an ENT specialist in one week. Medication as prescribed. Avoid getting water in ear canal. Return for any emergent medical conditions. Med/Other Pt SpecificInfo: Prescription(s) given Scripts Luzsgnxy-Rrdqopelv-WZ Otic Drops (Gwmtdged-Qjsohqbey-CQ Otic Drops) 3.5-10,000- 1 Mg-Units-% Soln 4 DROP LEFT EAR QID for Infection for 10 Days, BOTTLE 0 Refills Prov: Jaycee Griffin MD 12/16/17 Disposition: 01 DISCHARGE HOME Condition: Stable Mendoza Ramirez Dec 16, 2017 13:44
== END 2017-12-16 13:52 | disposition home or self-care (01) ==
LOC: NEPK 12:26
DX: H60.92 Unspecified otitis externa, left ear (principal); I10 Essential (primary) hypertension; F12.90 Cannabis use, unspecified, uncomplicated; Z72.0 Tobacco use
CPT/HCPCS: 99283